=== PATIENT | male | born 1965 ===

== ENCOUNTER 2018-03-04 09:30 | Emergency (ER) | payer OTHER ==
[2018-03-04 09:36] VITALS: O2SAT 98
--- NOTE | 2018-03-04 10:22 | ED PDOC ---
HPI: Back Time Seen by Provider: 03/04/18 10:08 Chief Complaint (Nursing): Back Pain Chief Complaint (Provider): Fall injury History Per: Patient History/Exam Limitations: no limitations Onset/Duration Of Symptoms: Days (x1) Current Symptoms Are (Timing): Still Present Quality Of Discomfort: "Pain" Associated Symptoms: None Additional Complaint(s): Kip Rubio is a 52 year old male, with a past medical history of HTN and hypercholesterolemia, who presents to the emergency department complaining of left rib and left upper back pain s/p trip and fall yesterday. Patient reports falling from a floor level height and landing on his left side. He also reports striking his head but denies any LOC or headache. Patient states pain was initially mild but worsen today prompting ED visit. He did not take any medication for pain. He denies any nausea, vomiting, lower back pain or other injuries. No further medical complaints. PMD: Sukh Jiang Past Medical History Reviewed: Historical Data, Nursing Documentation, Vital Signs Vital Signs: Last Vital Signs Temp 98.3 F 03/04/18 09:35 Pulse 56 L 03/04/18 09:35 Resp 20 03/04/18 09:35 BP 137/89 03/04/18 09:35 Pulse Ox 98 03/04/18 09:35 - Medical History PMH: Diabetes, HTN, Hypercholesterolemia - Surgical History Surgical History: No Surg Hx - Family History Family History: States: Unknown Family Hx - Social History Current smoker - smoking cessation education provided: Yes (Current some days smoker) Alcohol: Social Drugs: Denies - Home Medications Home Medications: Ambulatory Orders Medication Instructions Recorded Acetaminophen with Codeine 1 each PO Q4 PRN #14 tablet 10/04/15 [Tylenol with Codeine #3 Tablet] Hydrochlorothiazide 25 mg PO DAILY 10/04/15 MetFORMIN ER [Glucophage XR] 500 mg PO DAILY 10/04/15 Simvastatin 20 mg PO DAILY 10/04/15 Cephalexin [cephalexin] 500 mg PO BID #20 cap 02/27/16 Ibuprofen [Motrin] 600 mg PO TID PRN #20 tab 03/04/18 oxyCODONE/Acetaminophen [Percocet 1 ea PO Q6 PRN #15 tab 03/04/18 5/325 mg Tab] - Allergies Allergies/Adverse Reactions: Allergies Allergy/AdvReac Type Severity Reaction Status Date / Time No Known Allergies Allergy Verified 01/31/16 18:48 Review of Systems ROS Statement: Except As Marked, All Systems Reviewed And Found Negative Gastrointestinal: Negative for: Nausea, Vomiting Musculoskeletal: Positive for: Back Pain (left upper), Other (left rib pain) Neurological: Negative for: Headache, Other (LOC) Physical Exam - Reviewed Nursing Documentation Reviewed: Yes Vital Signs Reviewed: Yes - Physical Exam Appears: Positive for: No Acute Distress Head Exam: Positive for: ATRAUMATIC, NORMAL INSPECTION, NORMOCEPHALIC Skin: Positive for: Normal Color, Warm, Dry Eye Exam: Positive for: Normal appearance, EOMI, PERRL Neck: Positive for: Painless ROM, Supple Cardiovascular/Chest: Positive for: Regular Rate, Rhythm, Other (tenderness to left costal and rib area). Negative for: Murmur Respiratory: Positive for: Normal Breath Sounds. Negative for: Respiratory Distress Gastrointestinal/Abdominal: Positive for: Normal Exam, Soft. Negative for: Tenderness, Other (ecchymosis) Back: Positive for: Other (left upper back tenderness. ). Negative for: L CVA Tenderness, R CVA Tenderness, Vertebral Tenderness Extremity: Positive for: Normal ROM (upper and lower extremities). Negative for : Deformity, Swelling Neurologic/Psych: Positive for: Alert, Oriented (x3), Gait (steady). Negative for: Motor/Sensory Deficits - ECG O2 Sat by Pulse Oximetry: 98 (RA) Pulse Ox Interpretation: Normal - Progress Re-evaluation Time: 12:21 Condition: Re-examined, Improved Medical Decision Making Medical Decision Making: Time: 10:08 Initial Impression: left rib and left chest injury r/o rib fracture and intrathoracic injury. Initial Plan: --Toradol 30 mg IM --Ribs left & PA Chest [RAD] --Reevaluation ----- Scribe Attestation: Documented by Mu Jones, acting as a scribe for Hitesh Osorio MD. Provider Scribe Attestation: All medical record entries made by the Scribe were at my direction and personally dictated by me. I have reviewed the chart and agree that the record accurately reflects my personal performance of the history, physical exam, medical decision making, and the department course for this patient. I have also personally directed, reviewed, and agree with the discharge instructions and disposition. Disposition - Clinical Impression Clinical Impression: Left rib fracture - Patient ED Disposition Is Patient to be Admitted: No Doctor Will See Patient In The: Office Counseled Patient/Family Regarding: Studies Performed, Diagnosis, Need For Followup - Disposition Referrals: [facility] [Outside] Disposition: Routine/Home Disposition Time: 12:21 Condition: GOOD Additional Instructions: take your medications as instructed. Follow up with your PCP in 2-3 days. Return for worsening. Prescriptions: Ibuprofen [Motrin] 600 mg PO TID PRN #20 tab PRN Reason: Pain, Moderate (4-7) oxyCODONE/Acetaminophen [Percocet 5/325 mg Tab] 1 ea PO Q6 PRN #15 tab PRN Reason: Pain, Severe (8-10) Instructions: Rib Fractures in Adults, How to Use an Incentive Spirometer Forms: [facility] ED School/Work Excuse Print Language: GRENADIAN
[2018-03-04] MEDS ORDERED: Oxycodone/Acetaminophen 5/325 mg Tab PO ONE (11:03)
[2018-03-04] MEDS ORDERED: Oxycodone/Acetaminophen 5/325 mg Tab ONE (11:46)
[2018-03-04 13:03] VITALS: BP 136/84; PULSE 58; RESP 19
[2018-03-04 13:04] VITALS: TEMP 98
--- NOTE | 2018-03-04 13:49 | RAD ---
Date of service: 03/04/2018 PROCEDURE: Radiographs of the Chest and Left Ribs. HISTORY: left rib pain COMPARISON: None available. TECHNIQUE: Frontal radiograph of the chest and multiple oblique radiographs of the left ribs were obtained. FINDINGS: LEFT RIBS: No fracture or focal lesion visualized. LUNGS: Clear. PLEURA: No pneumothorax or pleural fluid. CARDIOVASCULAR: Normal sized heart. No pulmonary vascular congestion. OTHER FINDINGS: None. IMPRESSION: Unremarkable radiographs of the chest and left ribs. No visible displaced left rib fracture.
== END 2018-03-04 12:30 | disposition home or self-care (01) ==
LOC: H.ER 09:30
DX: S22.32XA Fracture of one rib, left side, initial encounter for closed fracture (principal); I10 Essential (primary) hypertension; E11.9 Type 2 diabetes mellitus without complications; E78.00 Pure hypercholesterolemia, unspecified; F17.200 Nicotine dependence, unspecified, uncomplicated; Z79.84 Long term (current) use of oral hypoglycemic drugs
CPT/HCPCS: 71101; 96372; 99283; J1885

== ENCOUNTER 2018-06-10 07:43 | Day surgery (SDC) | payer SELFPAY ==
[2018-06-06 09:52] VITALS: BMI 29.8
[2018-06-10 08:21] VITALS: BP 129/88; PULSE 43; RESP 18; TEMP 97.7; O2SAT 96
[2018-06-10] MEDS ORDERED: Propofol 10 mg/ml Inj (20 ML) ONE (09:21)
[2018-06-10] MEDS ORDERED: Midazolam 2 MG/2 ML VIAL ONE (09:21)
[2018-06-10] MEDS ORDERED: Rocuronium 10 mg/ml (5 ml) ONE (09:25)
[2018-06-10] MEDS ORDERED: ePHEDrine 50 mg/ml Inj ONE (09:25)
[2018-06-10] MEDS ORDERED: Succinylcholine 200 mg/10 ml Inj IV ONE (09:25)
[2018-06-10] MEDS ORDERED: Phenylephrine 10 mg/ml Inj ONE (09:25)
[2018-06-10] MEDS ORDERED: ceFAZolin IV 1 gm in Dextrose 2 GM/100 ML BAG IVPB ONE (09:38)
== END 2018-06-10 10:35 | disposition home or self-care (01) ==
LOC: H.OPSURG 07:43
PROVIDERS: ATTEND Specialist
DX: K43.9 Ventral hernia without obstruction or gangrene (principal); E11.9 Type 2 diabetes mellitus without complications; E78.5 Hyperlipidemia, unspecified; I10 Essential (primary) hypertension

== ENCOUNTER 2018-07-31 10:23 | Day surgery (SDC) | payer SELFPAY ==
[2018-06-24 10:09] VITALS: BMI 29.8
[2018-07-31 10:56] VITALS: RESP 18
[2018-07-31] MEDS ORDERED: Propofol 10 mg/ml Inj (20 ML) ONE (11:34)
[2018-07-31] MEDS ORDERED: Succinylcholine 200 mg/10 ml Inj IV ONE (11:34)
[2018-07-31] MEDS ORDERED: Midazolam 2 MG/2 ML VIAL ONE (11:34)
[2018-07-31] MEDS ORDERED: Rocuronium 10 mg/ml (5 ml) ONE (11:34)
[2018-07-31] MEDS ORDERED: ePHEDrine 50 mg/ml Inj ONE (11:35)
[2018-07-31] MEDS ORDERED: Phenylephrine 10 mg/ml Inj ONE (11:35)
[2018-07-31] MEDS ORDERED: ceFAZolin IV 1 gm in Dextrose 2 GM/100 ML BAG IVPB ONE (11:53)
[2018-07-31] MEDS ORDERED: Lactated Ringer's 1,000 ML IV ONE (12:18)
--- NOTE | 2018-07-31 13:16 | CP.SDSHP ---
Same Day Surgery H & P - Previous Medical/Surgical History Cardiac: Hypertension - Allergies Allergies: Allergies No Known Allergies Allergy (Verified 06/10/18 07:54) - Physical Exam Vital Signs: Vital Signs 07/31/18 07/31/18 10:51 10:55 Temperature 97.6 F Pulse Rate 59 L 58 L Respiratory 18 Rate Blood Pressure 126/86 O2 Sat by Pulse 98 Oximetry Short Stay Discharge - Short Stay Discharge Admitting Diagnosis/Reason for Visit: K43.9 Disposition: HOME/ ROUTINE Referrals: Mateusz Brock MD [Staff Provider] - Instructions: Abdominal Hernia Repair, Open Surgery Additional Instructions (Diet, Activity): 1) May continue with regular diet 2) No heavy lifting for 4 weeks 3) May shower but no heavy lifting 4) Please follow up with Dr. Brock in 2 weeks 5) Please return to ER for any acute abdominal pain uncontrolled by medication or any other emergencies. Progress Note/Discharge Note with Instructions: 53M s/p ventral hernia repair x2
--- NOTE | 2018-07-31 13:20 | PCM.SURG1 ---
Surgeon's Initial Post Op Note - Surgeon's Notes Surgeon: Mateusz Brock MD Ward Service Supervisor: Alex Del Rio, PGY3 Pre-Operative Diagnosis: Ventral abdominal hernia Operative Findings: ventral hernias *2 Post-Operative Diagnosis: Ventral abdominal hernia Operation Performed: Repair of ventral abdominal hernia with primary closure. Repair of ventral abdominal hernia with mesh Specimen/Specimens Removed: Hernia sac Estimated Blood Loss: EBL {In ML}: 10 Date of Surgery/Procedure: 07/31/18 Time of Surgery/Procedure: 12:01
[2018-07-31] MEDS ORDERED: Oxycodone/Acetaminophen 5/325 mg Tab PO ONE ×2 (15:56→16:10)
[2018-07-31 17:21] VITALS: BP 120/71; PULSE 56; TEMP 98.6; O2SAT 96
--- NOTE | 2018-08-01 21:08 | OP ---
PROCEDURE DATE: 07/31/2018 PREOPERATIVE DIAGNOSIS: Abdominal ventral hernia x2. POSTOPERATIVE DIAGNOSIS: Abdominal ventral hernia x2. PROCEDURE: Abdominal ventral hernia repair x2, primary and with mesh. SURGEON: Mateusz Brock MD LOOM BLOWER: Carlito Del Rio DO ANESTHESIA: General. ANESTHESIOLOGIST: Yue Jeffrey MD DESCRIPTION OF OPERATION: With the patient in the supine position under adequate general anesthesia, the abdomen was prepped and draped in the usual sterile manner. The location of the two ventral abdominal midline veins were identified and marked with skin markings. With note, two midline incisions were made in each hernia which were both superior to the umbilicus in the midline. The inferior hernia was larger. Upon dissecting down, the hernia content was encountered containing preperitoneal abdominal fat. Blunt dissection was used to tear off adhesions with scars from hernia sac once we were able to dissect totally around the hernia to the level of the defect. Upon reaching the defect, the hernia sac was then amputated using sutures and scissors and was taken for a specimen. The rest of the content of the hernia was able to be reduced into the defect which measured about 2 cm to 3 cm in diameter. Focus was then taken to superior midline hernia. An incision was made in that region also and dissection was made all the way to the level of the hernia sac. Contents of the hernia also included preperitoneal fat, which was able to be reduced upon dissection down to the hernia defect. After reducing the superior midline parietal abdominal wall hernia content, the defect was closed with 3-0 Prolene sutures in a [id number] stitch manner. Attention was then brought back to the inferior midline ventral abdominal wall hernia. This hernia defect was repaired with a mesh. The mesh used was a Prolene hernia system nonabsorbable, synthetic, surgical mesh, which had two layers. One layer was placed intraperitoneal and the other was placed in abductor fascia with the connection between the two defects. After cutting the mesh to size and laid out well, 8-0 Prolene sutures were used to tack the mesh down to the fascia, create an adequate closure, so the content will not be able to come through the hernia defect anymore. After repair of the superior defect primarily and inferiorly defect with mesh, subcutaneous tissue was closed with 0 Vicryl sutures for approximation and then 4-0 Monocryl sutures in a running fashion. Steri-Strips, 4x4, and tape were used for dressing. The patient tolerated the operation well and was extubated after the completion of the operation. Transferred to the recovery room in stable condition. Estimated blood loss was 10 mL. Carlito Del Rio DO Mateusz Brock MD
== END 2018-07-31 17:30 | disposition home or self-care (01) ==
LOC: H.OPSURG 10:23
PROVIDERS: ATTEND Specialist
DX: K43.9 Ventral hernia without obstruction or gangrene (principal); E78.5 Hyperlipidemia, unspecified; I10 Essential (primary) hypertension; Z87.891 Personal history of nicotine dependence
CPT/HCPCS: 49652; 88302; J0330; J0690; J1885; J2001; J2250; J2270; J2370; J2405; J2704; J3010; J7120

== ENCOUNTER 2018-08-01 19:42 | Emergency (ER) | payer SELFPAY ==
[2018-08-01 19:42] VITALS: BMI 29.8
[2018-08-01 20:08] VITALS: O2SAT 98
--- NOTE | 2018-08-01 21:35 | ED PDOC ---
HPI: Wound Care - HPI Time Seen by Provider: 08/01/18 21:09 Chief Complaint (Nursing): Abdominal Pain Chief Complaint (Provider): wound check History Per: Patient Exam Limitations: no limitations Onset/Duration Of Symptoms: Hrs Quality Of Symptoms: Itching Additional Complaint(s): 53 y/o male presents for wound check to abdomen x 12 hours. Patient states he had ventral hernia repair here yesterday with Dr. Brock and around 21:00 last night started experiencing itching and burning to abdomen where the ends of the tape are. Patient then noticed skin peeling from corners, which prompted ED visit. Denies fever, nausea/vomiting, chest pain, shortness of breath, abdominal pain. Patient urinating and moving bowels without difficulty. States he is taking Percocet for pain but feels like it makes him dizzy. Past Medical History Reviewed: Historical Data, Nursing Documentation, Vital Signs Vital Signs: Last Vital Signs Temp 98.4 F 08/01/18 20:06 Pulse 84 08/01/18 20:06 Resp 16 08/01/18 20:06 BP 146/84 08/01/18 20:06 Pulse Ox 98 08/01/18 20:06 - Medical History PMH: Diabetes, HTN, Hypercholesterolemia Denies: Chronic Kidney Disease - Family History Family History: States: Unknown Family Hx - Home Medications Home Medications: Ambulatory Orders Medication Instructions Recorded Hydrochlorothiazide 25 mg PO DAILY 10/04/15 Rosuvastatin Calcium [Crestor] 10 mg PO DAILY 06/06/18 oxyCODONE/Acetaminophen [Percocet 1 tab PO Q4 PRN 07/31/18 5/325 mg Tab] - Allergies Allergies/Adverse Reactions: Allergies Allergy/AdvReac Type Severity Reaction Status Date / Time No Known Allergies Allergy Verified 08/01/18 20:06 Review of Systems ROS Statement: Except As Marked, All Systems Reviewed And Found Negative Skin: Positive for: Rash Physical Exam - Reviewed Nursing Documentation Reviewed: Yes Vital Signs Reviewed: Yes - Physical Exam Appears: Positive for: Well, Non-toxic, No Acute Distress Cardiovascular/Chest: Positive for: Regular Rate, Rhythm Respiratory: Positive for: Normal Breath Sounds Gastrointestinal/Abdominal: Positive for: Bowel Sounds, Soft, Other (abdomianl binder, medical tape removed from abdomen; skin erythema/peeling noted in co rners where tape was. No tenderness, drainage, warmth. Steristrips in place, dry. No odor, erythema. Abdomen soft. + BS). Negative for: Tenderness Extremity: Positive for: Normal ROM Neurologic/Psych: Positive for: Alert, Oriented (x3) - ECG O2 Sat by Pulse Oximetry: 98 - Progress ED Course And Treament: Benadryl PO Bacitracin applied to skin break down. 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
[2018-08-01 22:03] VITALS: BP 130/78; PULSE 76; RESP 18; TEMP 98
== END 2018-08-01 22:00 | disposition home or self-care (01) ==
LOC: H.ER 19:42
DX: Z48.01 Encounter for change or removal of surgical wound dressing (principal); L30.9 Dermatitis, unspecified